=== PATIENT | male | born 1975 | race Caucasian/White ===

== ENCOUNTER 2022-02-19 11:19 | Emergency (ER) | payer SELFPAY ==
--- NOTE | ~2022-02-19 | XR_ITS ---
EXAMINATION:XR_[id number]_CR DATE: 02/19/2022 12:10 INDICATION: Neck pain after lifting heavy boxes TECHNIQUE: AP, lateral, lateral swimmers and odontoid views of the cervical spine are provided. COMPARISON: None FINDINGS: There is a mild reversal of the normal cervical lordosis. Odontoid is intact. Normal atlantoaxial in terval. Vertebral body heights are normal. Disc heights remain normal but there are small endplate os teophytes at C3-C4 through C6-C7 including small posterior osteophytes at C3-C4 which result in mild central canal stenosis at this level. Moderate uncovertebral osteoarthritis on the left at C3-C4, mil d on the right and minimal to mild bilaterally at the caudal cervical levels. Is also scattered minim al to mild facet osteoarthritis throughout the cervical spine. Prevertebral soft tissues are normal. IMPRESSION: 1. Mild cervical spondylosis and mild reversal of the normal cervical lordosis which could be either positional or due to muscle spasm. No acute osseous abnormality. Reviewed, dictated and finalized at location A. IMPRESSION: 1. Mild cervical spondylosis and mild reversal of the normal cervical lordosis which could be either positional or due to muscle spasm. No acute osseous abnor mality.
[2022-02-19 11:31] VITALS: BP 160/98; PULSE 84; RESP 18; TEMP 36.4; O2SAT 100
--- NOTE | 2022-02-19 13:16 | ED.GENADULT ---
HPI - General Adult General Chief complaint: Extremity Injury, Upper Stated complaint: Lt shoulder pain History of Present Illness HPI narrative: 46 y/o male. PMHx Non-contributory. Presents to [facility] today with acute complaints of Left side neck pain, worsening in the past 48 hours. Client reports to have been lifting heavy boxes over the weekend, and awoke this AM with neck stiffness and tension on LT side. Worse with quick movement or turning head quickly. No falls or direct trauma identified. No fevers. Related Data Allergies Allergy/AdvReac Type Severity Reaction Status Date / Time No Known Allergies Allergy Verified 02/19/22 12:20 [facility] Family History Family History Mother Patient's mother is in good health Father Patient's father is in good health Social History Social History Smoking status: Never smoker Alcohol intake: current Exam Narrative: GENERAL: This is a well-nourished, well-developed adult, in no apparent distress. HEAD: normocephalic, atraumatic. EYES: PERRL. Sclera clear/white. EARS: External ears normal, auditory canals clear and without drainage, TMs normal. NOSE: External nose normal. Positive Rhinorrhea, no obstruction, nares patent. THROAT: Mucous membranes moist, posterior pharynx clear. No exudates. NECK: Neck supple, without lymphadenopathy, masses or thyromegaly. No midline spinal tenderness or deformity. Reproducible cervical spasm LT. CARDIOVASCULAR: Regular rate and rhythm without murmurs, gallops, or rubs. Pulses normal BUE. RESPIRATORY: Clear to auscultation. Breath sounds equal bilaterally. No wheezes, rales, or rhonchi. GASTROINTESTINAL: Abdomen soft, non-tender, nondistended. Bowel sounds are active. No guarding. SKIN: warm, intact with no suspicious lesions or rash, good texture and turgor. NEURO: Alert, active, and age appropriate. No focal neurologic deficits. Good sensation and discrimination BUE. EXTREMITIES: Negative. Moves upper extremities w/o issues. Course Course Level of Care: Express Care Visit Vital Signs Vital signs: Vital Signs Temperature 36.4 C 02/19/22 11:31 Pulse Rate 84 02/19/22 11:31 Respiratory Rate 18 02/19/22 11:31 Blood Pressure 160/98 H 02/19/22 11:31 Pulse Oximetry 100 02/19/22 11:31 Oxygen Delivery Room Air 02/19/22 11:31 Temperature 36.4 C 02/19/22 11:31 Pulse Rate 84 02/19/22 11:31 Respiratory Rate 18 02/19/22 11:31 Blood Pressure 160/98 H 02/19/22 11:31 Pulse Oximetry 02/19/22 11:31 Oxygen Delivery Room Air 02/19/22 11:31 The patient has been informed that they may have pre-hypertension or Hypertension based on a BP reading in the clinic. It is recommended that the patient call the primary care provider listed on their discharge instructions or a physician of their choice as soon as possible (within 1-2week) to arrange follow up for further evaluation of possible pre-hypertension or hypertension. Medical Decision Making Differential Diagnosis Differential Diagnosis: Differential Diagnosis: Differential Diagnosis: Consideration of the following conditions may be warranted for the presenting problem, they are not final diagnoses: Osteoarthritis, spinal stenosis, Spinal fracture/derangement, or other. Vital Signs Vital Signs: Vital Signs Temperature 36.4 C 02/19/22 11:31 Pulse Rate 84 02/19/22 11:31 Respiratory Rate 18 02/19/22 11:31 Blood Pressure 160/98 H 02/19/22 11:31 Pulse Oximetry 02/19/22 11:31 Oxygen Delivery Room Air 02/19/22 11:31 Temperature 36.4 C 02/19/22 11:31 Pulse Rate 84 02/19/22 11:31 Respiratory Rate 18 02/19/22 11:31 Blood Pressure 160/98 H 02/19/22 11:31 Pulse Oximetry 100 02/19/22 11:31 Oxygen Delivery Room Air 02/19/22 11:31 Imaging Data Radiologist's impression: Mild cervical spo
== END 2022-02-19 12:33 | disposition home or self-care (01) ==
PROVIDERS: Emergency Provider Nurse Practitioner Adult Health
DX: M62.838 Other muscle spasm (principal)
CPT/HCPCS: 72040; 99213; G0463

== ENCOUNTER 2024-07-15 13:59 | Emergency (ER) | payer OTHER, SELFPAY ==
--- NOTE | ~2024-07-15 | XR_ITS ---
EXAMINATION: XR chest 2V DATE: 07/15/2024 14:41 INDICATION: Cough TECHNIQUE: PA and lateral views of the chest were obtained. COMPARISON: Chest radiograph dated 09/11/2016 FINDINGS: The lungs are clear with no focal airspace opacities, pulmonary edema, pleural effusion or pneumothor ax. The cardiomediastinal silhouette is normal. Mild thoracic spondylosis. IMPRESSION: 1. No acute cardiopulmonary disease. Reviewed, dictated and finalized at location A. LATION ENGINEER
--- NOTE | 2024-07-15 14:05 | ED_ITS ---
HPI - URI/Sore Throat General Chief Complaint: Upper Respiratory Infection Stated Complaint: cough/head pain Time Seen by Provider: 07/15/24 14:11 Source: patient Mode of arrival: ambulatory Limitations: no limitations History of Present Illness HPI Narrative: 48 y/o male presented for c/o cough x5 days. Endorses a headache and nasal congestion. Denies sob, wheezing, n/v/d/f/c. Son had pneumonia 2 weeks ago. Taki ng Dayquil and Nyquil. Related Data Home Medications ?Medication ?Instructions ?Recorded ?Confirmed ?Last Taken ?Type insulin degludec 100 unit/mL (3 unit subcut 07/15/24 Unknown History mL) subcutaneous pen lisinopril 5 mg tablet mg 07/15/24 Unknown History metformin 500 mg tablet,extended mg PO 07/15/24 Unknown History release 24 hr omega-3 acid ethyl esters 1 gram PO 07/15/24 Unknown History capsule rosuvastatin 40 mg tablet mg 07/15/24 Unknown History Allergies Allergy/AdvReac Type Severity Reaction Status Date / Time No Known Allergies Allergy Verified 07/15/24 14:09 Review of Systems Review of Systems: CONSTITUTIONAL: Denies body aches, fever, chills, or sweats. EYES: Denies visual changes, redness, or discharge. ENT: reports rhinorrhea, congestion, Denies sore throat, or otalgia. CARDIOVASCULAR: Denies chest pain, palpitations, or edema. RESPIRATORY: Reports cough, denies sob, wheezing. GASTROINTESTINAL: Denies abdominal pain, nausea, vomiting, or diarrhea. MUSCULOSKELETAL: Denies back pain, joint pain, or myalgia. NEUROLOGIC: reports headache All systems reviewed & are unremarkable except as noted in HPI and below PMFSH Family History Family History Mother Patient's mother is in good health Father Patient's father is in good health Social History Social History Smoking status: Never smoker Alcohol intake: current Comments At time of signature, I have reviewed and agree with nursing past medical, surgical, social and family history unless otherwise noted. Please see nursing chart for further information. There is no relevant family history pertinent to the presenting complaint Exam Narrative: GENERAL: Well-appearing, in no acute distress. EYES: EOMI. No redness or drainage. Conjunctivae normal. ENT: Mucous membranes pink and moist. No rhinorrhea. TMs normal bilaterally. Throat normal. Uvula midline. NECK: Normal AROM. Supple. CHEST: No respiratory distress. Wheezing to bases HEART: Regular rate and rhythm. No murmur appreciated. ABDOMEN: Soft, nontender, nondistended, normal active bowel sounds. SKIN: Warm, dry, Capillary refill normal. Normal skin turgor. NEURO: Alert and oriented x3. Gait steady. PSYCH: Normal affect. Course Course Emergency Course: Patient is aware of diagnosis, understands and agrees to treatment plan. Anticipatory guidance given. Patient agrees to follow-up as directed and is aware of reasons to seek care at the emergency department. Portions of this record may have been created with voice recognition software Level of Care: Express Care Visit Vital Signs Vital signs: Vital Signs Pulse Rate 91 07/15/24 14:08 Respiratory Rate 18 07/15/24 14:08 Blood Pressure 150/86 H 07/15/24 14:08 Pulse Oximetry 99 07/15/24 14:08 Oxygen Delivery Room Air 07/15/24 14:08 Pulse Rate 91 07/15/24 14:08 Respiratory Rate 18 07/15/24 14:08 Blood Pressure 150/86 H 07/15/24 14:08 Pulse Oximetry 99 07/15/24 14:08 Oxygen Delivery Room Air 07/15/24 14:08 MDM - URI/Sore Throat MDM Narrative Medical decision making narrative: Discussed physical exam findings and CXR. Advised supportive measures and signs/symptoms to go to the ER. Pt is appropriate for outpt treatment and f/u. Differential Diagnosis Differential diagnosis: Likely upper respiratory infection, sinusitis, viral infection, bronchitis and other (pneumonia) Imaging Data Radiologist's impression: Patient: Too Cleary : 1975 MR#: [id number] Age: 48 Acct:[id number] Loc: [facility] ADM Date: 07/15/24Attending Dr: Ordering Physician: Otilia Mario APRN Date of Service: 07/15/24 Procedure(s): XR chest 2V Accession Number(s): [id number] cc: Otilia Mario APRN; Miki, Ilsa Velasoc MUSIC SOUND LIGHT TECHNICIAN~ EXAMINATION: XR chest 2V DATE: 07/15/2024 14:41 INDICATION: Cough TECHNIQUE: PA and lateral views of the chest were obtained. COMPARISON: Chest radiograph dated 09/11/2016 FINDINGS: The lungs are clear with no focal airspace opacities, pulmonary edema, pleural effusion or pneumothorax. The cardiomediastinal silhouette is normal. Mild thoracic spondylosis. IMPRESSION: 1. No acute cardiopulmonary disease. Discharge Plan Discharge Clinical Impression: Bronchitis Patient Disposition: Home, Self-Care Condition: Stable Instructions: Acute Bronchitis (ED) Additional Instructions: Acute bronchitis can be contagious because it is usually caused by infection with a virus or bacteria. It is usually for a few days but you can be contagious for up to one week. Avoid crowds until you do not have a fever and symptoms are improved Take medication as directed Recommend Flonase spray and Zyrtec (or Claritin/Debby) over the counter Cough syrup may cause drowsiness; avoid driving or take it at night time. Tylenol 1000mg every 8 hours as needed for pain Symptomatic treatment includes: rest, fluids, and increase humidity of the air at home. Follow up with your primary care provider as needed in 1 week Go to the ER for worsening symptoms or concerns Patient Language: Divehi Prescriptions: New benzonatate 200 mg capsule 200 mg PO TID PRN (Reason: cough) Qty: 20 0RF methylprednisolone [Medrol (Rudy)] 4 mg tablets,dose pack See Rx Instructions .ROUTE .COMPLEX Qty: 21 0RF Rx Instructions: orally per package directions No Action orphenadrine citrate 100 mg tablet extended release 100 mg PO Q12H PRN (Reason: muscle spasm) Qty: 30 0RF lisinopril 5 mg tablet metformin 500 mg tablet extended release 24 hr PO rosuvastatin 40 mg tablet omega-3 acid ethyl esters 1 gram capsule PO insulin degludec 100 unit/mL (3 mL) insulin pen SUBCUT Follow-up/Referrals: Miki,Ilsa Velasco, ANP [Primary Care Provider] - Time of Disposition: 14:48
[2024-07-15 14:08] VITALS: BP 150/86; PULSE 91; RESP 18; O2SAT 99
== END 2024-07-15 14:49 | disposition home or self-care (01) ==
PROVIDERS: Emergency Provider Nurse Practitioner Family; PCP Nurse Practitioner
DX: J40 Bronchitis, not specified as acute or chronic (principal); I10 Essential (primary) hypertension; E11.9 Type 2 diabetes mellitus without complications; E78.00 Pure hypercholesterolemia, unspecified; G47.30 Sleep apnea, unspecified
CPT/HCPCS: 71046; 99213; G0463

== ENCOUNTER 2025-01-26 09:26 | Emergency (ER) | payer OTHER, SELFPAY ==
[2025-01-26 09:43] VITALS: BP 160/88; PULSE 81; RESP 18; TEMP 36.6; O2SAT 99
--- NOTE | 2025-01-26 10:19 | ED.BACK ---
HPI - Back Pain/Injury General Chief Complaint: Back Pain/Injury Stated Complaint: back pain Time Seen by Provider: 01/26/25 10:19 Source: patient Mode of arrival: ambulatory Limitations: no limitations History of Present Illness HPI Narrative: 49 y/o male with hx DM presented for c/o left sided back pain x10 days. Says initially he tripped in the yard and 'tweaked' his back, but pain had been minimal. Then 2 days ago he was installing a back splash which required bending over a counter for several hours, and the pain returned. Pain is described as dull ache, intermittent and worse with movement. Taking 'weed gummies' at night to help sleep, nothing else for pain. Denies pain radiating into the hips or legs, numbness, tingling, weakness of the lower extremities, or change in gait, saddle paresthesia or loss of bowel or bladder. Related Data Home Medications ?Medication ?Instructions ?Recorded ?Confirmed ?Last Taken ?Type insulin degludec 100 unit/mL (3 unit subcut 07/15/24 Unknown History mL) subcutaneous pen lisinopril 5 mg tablet mg 07/15/24 Unknown History metformin 500 mg tablet,extended mg PO 07/15/24 Unknown History release 24 hr omega-3 acid ethyl esters 1 gram PO 07/15/24 Unknown History capsule rosuvastatin 40 mg tablet mg 07/15/24 Unknown History Allergies Allergy/AdvReac Type Severity Reaction Status Date / Time No Known Allergies Allergy Verified 01/26/25 10:15 Review of Systems Review of Systems: CONSTITUTIONAL: Denies body aches, fever, chills EYES: Denies visual changes CARDIOVASCULAR: Denies chest pain, palpitations, or edema. RESPIRATORY: Denies cough or dyspnea. GASTROINTESTINAL: Denies abdominal pain, nausea, vomiting, or diarrhea. SKIN: Denies rash, itching, or wounds. MUSCULOSKELETAL: reports back pain NEUROLOGIC: Denies headache, numbness, tingling, or weakness. All systems reviewed & are unremarkable except as noted in HPI and below PMFSH Family History Family History Mother Patient's mother is in good health Father Patient's father is in good health Social History Social History Smoking status: Never smoker Alcohol intake: current Comments At time of signature, I have reviewed and agree with nursing past medical, surgical, social and family history unless otherwise noted. Please see nursing chart for further information. There is no relevant family history pertinent to the presenting complaint Exam Narrative: GENERAL: Well-appearing, well-nourished, and in no acute distress. HEAD: Normocephalic, atraumatic. EYES: conjunctivae clear NECK: Supple. full ROM CHEST: Speaks in full sentences. No respiratory distress. HEART: Regular rate and rhythm. Normal and equal peripheral pulses. MUSC: No Vertebral point tenderness. no CVA tenderness. BLEs with normal strength and sensation, normal range of motion . No ecchymosis, open wounds. pulse palpable and equal bilaterally, skin warm, dry, pink. Capillary refill less than 3 seconds. Gait steady. SKIN: Warm, dry, no rash. NEURO: Alert and oriented x3. Course Course Emergency Course: Patient is aware of diagnosis, understands and agrees to treatment plan. Anticipatory guidance given. Patient agrees to follow-up as directed and is aware of reasons to seek care at the emergency department. Portions of this record may have been created with voice recognition software Level of Care: Express Care Visit Vital Signs Vital signs: Vital Signs Temperature 97.9 F 01/26/25 09:43 Pulse Rate 81 01/26/25 09:43 Respiratory Rate 18 01/26/25 09:43 Blood Pressure 160/88 H 01/26/25 09:43 Pulse Oximetry 99 01/26/25 09:43 Oxygen Delivery Room Air 01/26/25 09:43 Temperature 97.9 F 01/26/25 09:43 Pulse Rate 81 01/26/25 09:43 Respiratory Rate 18 01/26/25 09:43 Blood Pressure 160/88 H 01/26/25 09:43 Pulse Oximetry 99 01/26/25 09:43 Oxygen Delivery Room Air 01/26/25 09:43 Reviewed MDM - Back Pain/Injury MDM Narrative Medical decision making narrative: Discussed physical exam findings and reviewed prescriptions. Advised supportive measures and s/s to go to the ER. Pt is stable and appropriate for outpt treatment and follow up with pcp. Differential Diagnosis Differential diagnosis: Likely lumbar radiculopathy, sciatica, strain of lumbar region, renal colic, pyelonephritis and discitis Discharge Plan Discharge Clinical Impression: Back strain Qualifiers: Encounter type: initial encounter Qualified Code(s): S39.012A - Strain of muscle, fascia and tendon of lower back, initial encounter Patient Disposition: Home Condition: Stable Instructions: Back Pain (ED) Additional Instructions: Please follow up with your Primary Care Doctor within 48-72 hours - call for an appointment. Avoid lifting. pushing. pulling, or anything that worsens the pain. Walking and other gentle exercising several times a week has been shown to improve back pain; strict bed rest is not recommended. Take Motrin 800mg every 8 hours with food for the next 3 days, along with Tylenol 1000mg every 8 hours Take muscle relaxers every 8 hours as needed for muscle spasm- do not drive or make any important decisions while on this medication for it can make you drowsy. Over the counter pain cream like icy/hot or biofreeze, or Salon pas/lidocaine 4% patch. You may apply heat or cold to the area as needed. Go to the ER If you experience any worsening pain, swelling, numbness, weakness, problems with bladder or bowel function, weakness or loss of feeling in one or both of your legs, or any other serious concerns. Patient Language: Luxembourgish Prescriptions: New cyclobenzaprine 10 mg tablet 10 mg PO TID PRN (Reason: muscle spasm) Qty: 10 0RF ibuprofen 800 mg tablet 800 mg PO TID PRN (Reason: pain) Qty: 15 0RF No Action orphenadrine citrate 100 mg tablet extended release 100 mg PO Q12H PRN (Reason: muscle spasm) Qty: 30 0RF lisinopril 5 mg tablet metformin 500 mg tablet extended release 24 hr PO rosuvastatin 40 mg tablet omega-3 acid ethyl esters 1 gram capsule PO insulin degludec 100 unit/mL (3 mL) insulin pen SUBCUT Follow-up/Referrals: Miki,RICHARD Funk [Primary Care Provider] -
== END 2025-01-26 10:34 | disposition home or self-care (01) ==
PROVIDERS: Emergency Provider Nurse Practitioner Family; PCP Nurse Practitioner
DX: S39.012A Strain of muscle, fascia and tendon of lower back, initial encounter (principal); W01.0XXA Fall on same level from slipping, tripping and stumbling without subsequent striking against object, initial encounter
CPT/HCPCS: 99213; G0463